=== PATIENT | male | born 1960 | race Caucasian/White ===

== ENCOUNTER 2018-03-17 09:54 | Emergency (ER) | payer OTHER ==
--- NOTE | 2018-03-17 10:19 | EDM.PDOC ---
ED HPI GENERAL MEDICAL PROBLEM - General Chief Complaint: Lower Extremity Injury/Pain Stated Complaint: R KNEE POPPED Time Seen by Provider: 03/17/18 10:00 Source of Information: Reports: Patient History Limitations: Reports: No Limitations - History of Present Illness INITIAL COMMENTS - FREE TEXT/NARRATIVE: Patient comes into the emergency Department today with complaint of right knee pain. Patient was putting on his shoe any heard a pop in his right knee causing instant pain. He states he is still able to walk on his knee however it is painful on the medial aspect of the knee. He has had arthroscopic procedure completed however he does not remember if it is on his right knee or his left knee in the past. Denies any numbness or tingling radiating down to his foot or to the groin and well as any swelling. He does state it is tender to touch on the medial aspect of the knee. He has not had any recent injuries to the right knee. Denies taking any medication prior to arrival. Is using crutches that he had at home because it helps with the discomfort. Onset: Today, Sudden Quality: Reports: Ache, Throbbing Severity: Moderate Improves with: Reports: Immobilization Worsens with: Reports: Movement Context: Reports: Activity Associated Symptoms: Reports: No Other Symptoms - Related Data Allergies Allergy/AdvReac Type Severity Reaction Status Date / Time No Known Allergies Allergy Verified 03/17/18 10:52 Home Meds: Home Meds Aspirin [[place] Chewable] 81 mg PO DAILY 03/17/18 [History] Empagliflozin [Jardiance] 25 mg PO DAILY 03/17/18 [History] Pravastatin Sodium 20 mg PO DAILY 03/17/18 [History] metFORMIN HCl [Metformin HCl] 1,000 mg PO DAILY 03/17/18 [History] ED ROS GENERAL - Review of Systems Review Of Systems: See Below Constitutional: Reports: No Symptoms HEENT: Reports: No Symptoms Respiratory: Reports: No Symptoms Cardiovascular: Reports: No Symptoms Musculoskeletal: Reports: No Symptoms Skin: Reports: No Symptoms Psychiatric: Reports: No Symptoms Hematologic/Lymphatic: Reports: No Symptoms Immunologic: Reports: No Symptoms ED EXAM, GENERAL - Physical Exam Exam: See Below Exam Limited By: No Limitations General Appearance: Alert, WD/WN, No Apparent Distress Head: Atraumatic, Normocephalic Neck: Normal Inspection, Supple, Full Range of Motion Respiratory/Chest: No Respiratory Distress, No Accessory Muscle Use Cardiovascular: Normal Peripheral Pulses, No Edema Peripheral Pulses: 2+: Popliteal (L), Popliteal (R), Posterior Tibial (L), Posterior Tibial (R) Back Exam: Normal Inspection, Full Range of Motion Extremities: Normal Inspection, Leg Pain (right knee-tenderness noted medial aspect of knee. No swelling, redness, or bruising noted), Limited Range of Motion (ROM limited with extension. Can internally/externally rotate and flex without complications ). No: Pedal Edema, Slow Capillary Refill, Joint Swelling , Arm Pain, Greg's Sign, Increased Warmth Neurological: Alert, Oriented, No Motor/Sensory Deficits Psychiatric: Normal Affect, Normal Mood Skin Exam: Warm, Dry, Intact, Normal Color Course - Orders/Labs/Meds Orders: Active Orders 24 hr Category Date Time Status Knee wo Cont Rt [CT] Stat Exams 03/17/18 10:03 Ordered Departure - Departure Time of Disposition: 11:10 Disposition: Home, Self-Care 01 Condition: Good Clinical Impression: Knee strain Qualifiers: Encounter type: initial encounter Laterality: right Qualified Code(s): S86.911A - Strain of unspecified muscle(s) and tendon(s) at lower leg level, right leg, initial encounter Medial collateral ligament sprain of knee Qualifiers: Encounter type: initial encounter Laterality: right Qualified Code(s): S83.411A - Sprain of medial collateral ligament of right knee, initial encounter - Discharge Information *PRESCRIPTION DRUG MONITORING PROGRAM REVIEWED*: Not Applicable *COPY OF PRESCRIPTION DRUG MONITORING REPORT IN PATIENT JANES: Not Applicable Instructions: Muscle Strain, [id number], RICE for Routine Care of Injuries, [id number], Medial Collateral Knee Ligament Sprain, Phase II Rehab-SportsMed Forms: ED Department Discharge Additional Instructions: 1. rest 2. Ice the knee 3-4 times a day for 20 minutes at a time 3. Keep the knee elevated above the level of the heart 4. Use crutches over the next couple of days to help with stability and pain relief 5. Use brace to help strengthen the ligaments and tendons around the knee 6. Can use Tylenol or ibuprofen as needed for pain control 7. Activity and diet as tolerated 8. Follow-up with primary care provider in a week if not better an MRI may be warranted for further investigation and evaluation of the ligaments 9. Return if symptoms worsen or progress - My Orders Last 24 Hours: My Active Orders 03/17/18 10:03 Knee wo Cont Rt [CT] Stat - Assessment/Plan Last 24 Hours: My Active Orders 03/17/18 10:03 Knee wo Cont Rt [CT] Stat Assessment:: 1. right knee pain Plan: 1. CT scan completed in ER. results reveiwed with the pt 2. Pt was offered pain medication however denied anything for the discomfort 3. Pt has crutches and will continue to use them over the course of the next few days 4. Knee brace was applied for stability of the medial ligaments and tendens 5. Ice applied in ER to help with discomfort 6. Education provided to the pt regarding pain control, activity and diet, follow up, and when to return if need be
[2018-03-17] MEDS ORDERED: Ibuprofen 200 MG Tab PO STA (10:28)
== END 2018-03-17 11:15 | disposition home or self-care (01) ==
LOC: VM.ED 09:54
DX: S86.911A Strain of unspecified muscle(s) and tendon(s) at lower leg level, right leg, initial encounter (principal); S83.411A Sprain of medial collateral ligament of right knee, initial encounter; Z79.82 Long term (current) use of aspirin; Z79.899 Other long term (current) drug therapy; X58.XXXA Exposure to other specified factors, initial encounter
CPT/HCPCS: 73700-RT; 99283; A9270-GY

== ENCOUNTER 2022-07-18 16:39 | Observation (INO) | payer OTHER ==
[2022-07-18] MEDS ORDERED: Ondansetron 4 MG Tab.DIS PO PRN (16:51)
[2022-07-18] MEDS ORDERED: Ondansetron 4 MG/2 ML SDV IV PRN (16:51)
[2022-07-18] MEDS ORDERED: HYDROmorphone 0.5 MG/0.5 ML Syringe IVPUSH PRN (16:51)
[2022-07-18] MEDS ORDERED: Glucagon,Human Recombinant 1 MG Vial IM PRN (16:57)
[2022-07-18] MEDS ORDERED: Insulin Glarg,Human.Rec.Analog 100 Unit/ML SUBCUT ONE (16:57)
[2022-07-18] MEDS ORDERED: 50% Dextrose in Water 50 ML Syringe IVPUSH PRN (16:57)
[2022-07-18] MEDS: Sodium Chloride 0.9% 1,000 ML IV SCH (20:29)
[2022-07-18 22:48] LABS: CORONAVIRUS COVID-19 NAA NEGATIVE (NEGATIVE)
[2022-07-19] MEDS: Sodium Chloride 0.9% 1,000 ML IV SCH (03:15)
[2022-07-19 07:14] LABS: ANION GAP 13.6 mmol/L (5-15)
[2022-07-19] MEDS ORDERED: 50% Dextrose in Water 50 ML Syringe IVPUSH PRN (08:43)
[2022-07-19] MEDS ORDERED: Glucagon,Human Recombinant 1 MG Vial IM PRN (08:43)
[2022-07-19] MEDS ORDERED: Insulin Glarg,Human.Rec.Analog 100 Unit/ML SUBCUT SCH (09:00)
[2022-07-19] MEDS ORDERED: Aspirin 81 MG Tab.Chew PO SCH (09:00)
[2022-07-19] MEDS ORDERED: metFORMIN 500 MG Tab PO SCH (09:00)
[2022-07-19] MEDS ORDERED: Enoxaparin 40 MG/0.4 ML Syringe SUBCUT SCH (21:00)
== END 2022-07-19 15:10 | disposition home or self-care (01) ==
LOC: VM.MS 16:55
PROVIDERS: ADMIT Internal Medicine; ATTEND Internal Medicine
DX: N18.9 Chronic kidney disease, unspecified (principal); N17.9 Acute kidney failure, unspecified; E11.22 Type 2 diabetes mellitus with diabetic chronic kidney disease; I12.9 Hypertensive chronic kidney disease with stage 1 through stage 4 chronic kidney disease, or unspecified chronic kidney disease; E66.9 Obesity, unspecified; R26.9 Unspecified abnormalities of gait and mobility; E86.0 Dehydration; Z91.018 Allergy to other foods; Z88.8 Allergy status to other drugs, medicaments and biological substances; Z91.048 Other nonmedicinal substance allergy status; Z79.899 Other long term (current) drug therapy; Z79.82 Long term (current) use of aspirin; Z79.84 Long term (current) use of oral hypoglycemic drugs; Z98.890 Other specified postprocedural states; Z20.822 Contact with and (suspected) exposure to COVID-19
CPT/HCPCS: 0240U; 36415; 71046; 80048; 82550; 82947; 83605; 83735; 85025; 87040; 96360; 96361; 97161-GP; A9270-GY; G0378; G0379; J1815-GY; J7030

== ENCOUNTER 2022-12-30 06:18 | Day surgery (SDC) | payer OTHER ==
[2022-12-30] MEDS: Lactated Ringers 1,000 ML IV SCH (06:35)
[2022-12-30] MEDS ORDERED: Propofol 200 MG/20 ML SDV ONE ×2 (07:31→08:10)
[2022-12-30] MEDS ORDERED: fentaNYL 100 MCG/2 ML SDV ONE (07:31)
== END 2022-12-30 09:45 | disposition home or self-care (01) ==
LOC: VM.SDS 06:18
PROVIDERS: ATTEND Student in an Organized Health Care Education/Training Program
DX: Z12.11 Encounter for screening for malignant neoplasm of colon (principal); D12.3 Benign neoplasm of transverse colon; K62.1 Rectal polyp; E78.5 Hyperlipidemia, unspecified; E11.22 Type 2 diabetes mellitus with diabetic chronic kidney disease; N18.2 Chronic kidney disease, stage 2 (mild); E11.42 Type 2 diabetes mellitus with diabetic polyneuropathy; E66.9 Obesity, unspecified; Z83.71 Family history of colonic polyps; Z79.4 Long term (current) use of insulin; Z79.899 Other long term (current) drug therapy; Z79.82 Long term (current) use of aspirin; Z79.84 Long term (current) use of oral hypoglycemic drugs; Z88.8 Allergy status to other drugs, medicaments and biological substances; Z91.018 Allergy to other foods; Z68.32 Body mass index [BMI] 32.0-32.9, adult; Z87.891 Personal history of nicotine dependence
CPT/HCPCS: 00811; 82947; 93005; J2704; J3010; J7120

== ENCOUNTER 2024-02-29 06:41 | Day surgery (SDC) | payer OTHER ==
[2024-02-29] MEDS: Lactated Ringers 1,000 ML IV SCH (06:58)
[2024-02-29] MEDS ORDERED: Propofol 200 MG/20 ML SDV ONE ×2 (08:20→08:48)
[2024-02-29] MEDS ORDERED: fentaNYL 100 MCG/2 ML SDV ONE (08:20)
== END 2024-02-29 10:06 | disposition home or self-care (01) ==
LOC: VM.SDS 06:41
PROVIDERS: ATTEND Family Medicine
DX: Z12.11 Encounter for screening for malignant neoplasm of colon (principal); D12.6 Benign neoplasm of colon, unspecified; Z86.010 Personal history of colon polyps; Z80.0 Family history of malignant neoplasm of digestive organs; E11.22 Type 2 diabetes mellitus with diabetic chronic kidney disease; N18.2 Chronic kidney disease, stage 2 (mild); E78.00 Pure hypercholesterolemia, unspecified; E66.9 Obesity, unspecified; Z68.32 Body mass index [BMI] 32.0-32.9, adult; F32.A Depression, unspecified; F41.9 Anxiety disorder, unspecified; Z79.899 Other long term (current) drug therapy; Z88.8 Allergy status to other drugs, medicaments and biological substances
CPT/HCPCS: 00811; 45380; 45385; 82947; 93005; J2704; J3010; J7120